=== PATIENT | female | born 1955 | race Caucasian/White ===

== ENCOUNTER → 2019-07-16 | Day surgery (SDC) | payer OTHER ==
[~2019-07-16] MED LIST: ACETAMINOPHEN 325 MG TABLET PO PRN; ALBUTEROL SULFATE 2.5 MG/3 ML NEBU. NEB PRN; ATROPINE 0.5 MG/5 ML DISP.SYRIN. IV PRN; CALC-450 PO; IV RINGERS SOLUTION,LACTATED 1,000 ML IV SCH; MAGN100T6 PO; MULT-658 PO; OMEG1CAP50 PO; ONDANSETRON PF 4 MG/2 ML VIAL. IV PRN; PANT20TA58 PO; PHENOL ORAL SPRAY 177ML BOTTLE. MM PRN; PROPOFOL 20 ML IV ONE; SUCR1TAB PO; diphenhydrAMINE 50 MG/ML VIAL IV PRN
[2019-07-16 07:52] VITALS: BP 101/51
--- NOTE | 2019-07-17 18:38 | PATHOLOGY ---
[facility] Accession Number: [id number] . 01 Material submitted: . PART A: stomach - GASTRIC BIOPSY PART B: esophagus - DISTAL ESOPHAGUS BIOPSY. Modifiers: distal . 01 Clinical history: . GERD. . 02 Diagnosis: A. Gastric biopsies: - Congestion and slight chronic inflammation. . B. Esophageal biopsies, distal esophagus: - Segments of mildly hyperplastic squamous esophageal mucosa. See comment. . 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 02 Comment: Sections of the gastric biopsy reveal segments of gastric antral and antral/body transition mucosa showing congestion and slight chronic inflammation. A properly controlled immunoperoxidase stain for Helicobacter is negative for Helicobacter organisms. . Sections of the distal esophageal biopsy reveal segments of mildly hyperplastic squamous esophageal mucosa. The findings are consistent with reflux esophagitis. There is no evidence of Lindo's change, dysplasia, or malignancy. (JPM:elisa/massimo 07/17/2019) . 02 Electronically signed: . Sid Hawley MD, Pathologist NPI- [id number] . 01 Gross description: . A. Received in formalin labeled "Marcia, Bree, gastric BX" is a 0.5 x 0.3 x 0.1 cm aggregate of cruz-brown soft tissue fragments. The specimen is submitted entirely in A1. . B. Received in formalin labeled "Rielly, Bree, distal esophagus BX" is a 0.6 x 0.3 x 0.1 cm aggregate of cruz-brown soft tissue fragments. The specimen is submitted entirely in B1. ([facility] [place]; 07/16/2019) [facility] 07/16/2019 1715 Local . 02 Pathologist provided ICD-10: K31.89, K29.50 . 02 CPT . 717271, [id number], [id number] Specimen Comment: A courtesy copy of this report has been sent to [phone] Specimen Comment: Report sent to Performed at: 01 [facility] [address] [id number] MD Reuben Lambert MD Phone: [phone] Performed at: 02 [facility] [address] [place], [place] [id number] MD Sid Hawley MD Phone: [phone]
== END | disposition home or self-care (01) ==
LOC: SURG 05:51
PROVIDERS: ATTEND Emergency Medicine
DX: K21.9 Gastro-esophageal reflux disease without esophagitis (principal); K29.50 Unspecified chronic gastritis without bleeding; K44.9 Diaphragmatic hernia without obstruction or gangrene; Z90.49 Acquired absence of other specified parts of digestive tract; Z72.89 Other problems related to lifestyle
CPT/HCPCS: 43239; 88305; 88342; J2704; J7120